=== PATIENT | male | born 1945 | race Caucasian/White ===

== ENCOUNTER 2019-01-23 08:36 | Emergency (ER) | payer MEDICARE ==
[2019-01-23 09:26] LABS: CHLORIDE,CL 104 mmol/L (98-107); SODIUM,NA 139 mmol/L (136-145)
--- NOTE | 2019-01-23 09:36 | EDM.PDOC ---
ED HPI GENERAL MEDICAL PROBLEM - General Chief Complaint: Neuro Symptoms/Deficits Stated Complaint: stroke code Time Seen by Provider: 01/23/19 09:01 Source of Information: Reports: EMS History Limitations: Reports: Altered Mental Status - History of Present Illness INITIAL COMMENTS - FREE TEXT/NARRATIVE: Patient brought from [facility] after being noted to be unresponsive this morning. He was in bed. Last known normal was last night around 8pm. Usually ambulates, picks up meds from nurses. Usually is conversive and is oriented to name and place. Able to dress self. Blood sugar was 50 initially. Received glucagon x2. Transported to ER Blood sugar currently over 180. Patient is awake at this time but will not follow directions. Only word he says is "yes". Appears to have equal tone bilaterally, no facial droop. No other obvious focal neuro changes reported to be observed by EMS. Noted to draw both knees up while sitting in bed. Pulls back equally with both upper limbs when arms initially examined. Makes eye contact with examiners. No other recent changes reported by [facility] staff. No reported new meds or falls. No signs of cold/infection. History of dementia. - Related Data Allergies Allergy/AdvReac Type Severity Reaction Status Date / Time No Known Allergies Allergy Verified 01/23/19 09:23 Home Meds: Home Meds Bimatoprost [LUMIGAN 0.01% Ophth Soln] 1 drop EYEBOTH 199909/06/18 [History] Dorzolamide HCl/Timolol Maleat [Dorzolamide-Timolol Eye Drops] 1 drop EYEBOTH BID 09/06/18 [History] Insulin Detemir [Levemir Flextouch] 26 units SUBCUT DAILY 09/06/18 [History] Levothyroxine 175 mcg PO DAILY 09/06/18 [History] Simvastatin 10 mg PO 199909/06/18 [History] Dextrose [Glucose Gel] 1 tube PO ASDIRECTED PRN 10/26/18 [History] Glucagon,Human Recombinant [Glucagon Emergency Kit] 1 mg IJ ASDIRECTED PRN 10/26 [History] Insulin Aspart [NovoLOG] 10 unit INJECT 1200 10/26/18 [History] Sertraline [Zoloft] 50 mg PO DAILY 10/26/18 [History] Past Medical History HEENT History: Reports: Glaucoma, Hard of Hearing, Impaired Vision, Macular Degeneration, Other (See Below) Other HEENT History: Patient wears reading glasses. No hearing aide therapy. Moderate bilateral presbycusis. Cardiovascular History: Reports: Heart Murmur, High Cholesterol, Hypertension, Other (See Below) Other Cardiovascular History: Moderate aortic valve stenosis and mitral valve insufficiency by clinical exam Gastrointestinal History: Reports: Chronic Constipation Musculoskeletal History: Reports: Osteoarthritis Neurological History: Reports: Alzheimers Disease, Other (See Below) Other Neuro History: Dementia Psychiatric History: Reports: Alzheimers Disease, Anxiety, Dementia, Depression Endocrine/Metabolic History: Reports: Hypothyroidism, IDDM, Other (See Below) Other Endocrine/Metabolic History: Recurrent hypoglycemic episodes. Hematologic History: Reports: Anemia - Past Surgical History HEENT Surgical History: Reports: Adenoidectomy, Tonsillectomy Social & Family History - Family History Family Medical History: Noncontributory - Living Situation & Occupation Living situation: Reports: Single (1 son), Extended Care Facility (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 No: Lymphadenopathy (L), Lymphadenopathy (R) Respiratory/Chest: No Respiratory Distress, Lungs Clear, Normal Breath Sounds, No Accessory Muscle Use Cardiovascular: Normal Peripheral Pulses, Regular Rate, Rhythm, No Edema, Systolic Murmur GI/Abdominal: Normal Bowel Sounds, Soft, Non-Tender, No Distention (Male) Exam: Deferred Rectal (Males) Exam: Deferred Neurological: Alert, Other (patient uncooperative with exam. Appeared initially to have equal tone/spontaneous movement bilateral limbs. Also equal strength when trying to pull away from examiners. ) DTR: 2+: Bicep (R), Bicep (L), 3+: Patella (R), Patella (L) Back Exam: No: Muscle Spasm, Paraspinal Tenderness, Vertebral Tenderness Extremities: No Pedal Edema, Normal Capillary Refill Psychiatric: Normal Affect Skin Exam: Warm, Dry, Intact, Normal Color EKG INTERPRETATION EKG Date: 01/23/19 Time: 09:18 Rhythm: NSR Rate (Beats/Min): 76 [place]: Normal P-Wave: Present QRS: Normal ST-T: Normal QT: Normal Course - Orders/Labs/Meds Orders: Active Orders 24 hr Category Date Time Status EKG Documentation Completion [RC] ASDIRECTED Care 01/23/19 09:18 Active Head wo Cont [CT] Stat Exams 01/23/19 08:40 Taken PROLACTIN [REF] Stat Lab 01/23/19 09:05 Received Labs: Laboratory Tests 01/23/19 01/23/19 01/23/19 Range/Units 09:05 09:05 09:05 WBC 14.4 H (4.0-10.2) K/uL RBC 4.42 (4.33-5.41) M/uL Hgb 13.1 (13.1-16.8) g/dL Hct 38.5 L (39.0-49.0) % MCV 87.1 (84.0-98.0) fL MCH 29.6 (28.2-33.3) pg MCHC 34.0 (31.7-36.0) g/dL RDW 13.7 (11.2-14.1) % Plt Count 190 (150-350) K/uL Neut % (Auto) 89.3 H (45.0-80.0) % Lymph % (Auto) 6.9 L (10.0-50.0) % [place] % (Auto) 3.6 (2.0-14.0) % Eos % (Auto) 0.1 (0.0-5.0) % Baso % (Auto) 0.1 (0.0-2.0) % Neut # (Auto) 12.82 H (1.40-7.00) K/uL Lymph # (Auto) 0.99 (0.50-3.50) K/uL [place] # (Auto) 0.51 (0.00-1.00) K/uL Eos # (Auto) 0.02 (0.00-0.50) K/uL Baso # (Auto) 0.02 (0.00-0.20) K/uL PT 10.4 (9.5-12.0) SEC INR 1.0 APTT (21.0-31.3) SEC D-Dimer, Quantitative (0-400) ng/mL Sodium 139 (136-145) mmol/L Potassium 4.3 (3.5-5.1) mmol/L Chloride 104 (98-107) mmol/L Carbon Dioxide 27.2 (21.0-32.0) mmol/L BUN 22 H (7-18) mg/dL Creatinine 0.85 (0.51-1.17) mg/dL Est Cr Clr Drug Dosing TNP Estimated GFR (MDRD) > 60 mL/min Glucose 188 H (74-106) mg/dL Calcium 8.8 (8.5-10.1) mg/dL Magnesium 2.0 (1.8-2.4) mg/dL Total Bilirubin 0.5 (0.2-1.0) mg/dL AST 21 (15-37) U/L ALT 33 (12-78) U/L Alkaline Phosphatase 84 (46-116) IU/L Creatine Kinase 133 (26-308) U/L Creatine Kinase Index 1.4 (0.0-2.5) % CK-MB (CK-2) 1.80 (0.00-3.60) ng/mL Troponin I 0.008 (0.000-0.056) ng/mL NT-Pro-B Natriuret Pep 394 H (0-125) pg/mL Total Protein 7.2 (6.4-8.2) g/dL Albumin 3.6 (3.4-5.0) g/dL Specimen Type Urine Color Urine Appearance Urine pH (5.0-9.0) Ur Specific [place] (1.005-1.030) Urine Protein (NEGATIVE) mg/dL Urine Glucose (UA) (NEGATIVE) mg/dL Urine Ketones (NEGATIVE) mg/dL Urine Occult Blood (NEGATIVE) Urine Nitrite (NEGATIVE) Urine Bilirubin (NEGATIVE) Urine Urobilinogen (0.2-1.0) E.U./dL Ur Leukocyte Esterase (NEGATIVE) Urine RBC /HPF Urine WBC /HPF Ur Epithelial Cells /LPF Urine Bacteria (NONE TO FEW) /HPF 03/05/0801/23/19 01/23/19 Range/Units 09:05 09:05 09:05 WBC (4.0-10.2) K/uL RBC (4.33-5.41) M/uL Hgb (13.1-16.8) g/dL Hct (39.0-49.0) % MCV (84.0-98.0) fL MCH (28.2-33.3) pg MCHC (31.7-36.0) g/dL RDW (11.2-14.1) % Plt Count (150-350) K/uL Neut % (Auto) (45.0-80.0) % Lymph % (Auto) (10.0-50.0) % [place] % (Auto) (2.0-14.0) % Eos % (Auto) (0.0-5.0) % Baso % (Auto) (0.0-2.0) % Neut # (Auto) (1.40-7.00) K/uL Lymph # (Auto) (0.50-3.50) K/uL [place] # (Auto) (0.00-1.00) K/uL Eos # (Auto) (0.00-0.50) K/uL Baso # (Auto) (0.00-0.20) K/uL PT (9.5-12.0) SEC INR APTT 26.6 (21.0-31.3) SEC D-Dimer, Quantitative 455 H (0-400) ng/mL Sodium (136-145) mmol/L Potassium (3.5-5.1) mmol/L Chloride (98-107) mmol/L Carbon Dioxide (21.0-32.0) mmol/L BUN (7-18) mg/dL Creatinine (0.51-1.17) mg/dL Est Cr Clr Drug Dosing Estimated GFR (MDRD) mL/min Glucose (74-106) mg/dL Calcium (8.5-10.1) mg/dL Magnesium (1.8-2.4) mg/dL Total Bilirubin (0.2-1.0) mg/dL AST (15-37) U/L ALT (12-78) U/L Alkaline Phosphatase (46-116) IU/L Creatine Kinase (26-308) U/L Creatine Kinase Index (0.0-2.5) % CK-MB (CK-2) (0.00-3.60) ng/mL Troponin I (0.000-0.056) ng/mL NT-Pro-B Natriuret Pep (0-125) pg/mL Total Protein (6.4-8.2) g/dL Albumin (3.4-5.0) g/dL Specimen Type Urincath Urine Color Yellow Urine Appearance Clear Urine pH 6.5 (5.0-9.0) Ur Specific [place] 1.020 (1.005-1.030) Urine Protein Negative (NEGATIVE) mg/dL Urine Glucose (UA) 500 H (NEGATIVE) mg/dL Urine Ketones Negative (NEGATIVE) mg/dL Urine Occult Blood Moderate H (NEGATIVE) Urine Nitrite Negative (NEGATIVE) Urine Bilirubin Negative (NEGATIVE) Urine Urobilinogen 0.2 (0.2-1.0) E.U./dL Ur Leukocyte Esterase Negative (NEGATIVE) Urine RBC 40-50 H /HPF Urine WBC 0-5 /HPF Ur Epithelial Cells Few /LPF Urine Bacteria Rare (NONE TO FEW) /HPF Meds: Medications Discontinued Medications Generic Name Dose Route Start Last Admin Trade Name Freq PRN Reason Stop Dose Admin Lorazepam 1 mg 01/23/19 10:22 01/23/19 10:27 Ativan IVPUSH 01/23/19 10:23 1 mg ONETIME ONE Administration - Radiology Interpretation CT Results Date: 01/23/19 CT Results Time: 09:21 - Re-Assessments/Exams Free Text/Narrative Re-Assessment/Exam: 01/23/19 10:28 Unable to perform NIH stroke scale as patient non-cooperative. CT scan results unremarkable for acute changes/bleed EKG showed NSR. Labs performed and were overall unremarkable. Blood sugar elevated. WBC slightly elevated. No obvious signs of focal infection/UTI identified. Minimal elevation DDimer Patient's son contacted. He was willing to have patient evaluated by Neurology to see what recommendations would be. [facility] () was contacted and was willing to accept patient if [facility] recommended no immediate additional intervention. [facility] contacted. recommended patient be transferred to [facility] for further evaluation. Given time lapse since last normal, and current symptoms, no thrombolytic medication recommended at this time. Observing patient, it was eventually observed that he appeared to be moving his left limbs a bit more easily than the right. Noxious stimulus applied to right leg and no withdrawal observed, however withdrawal and "ow" noted when similar stimulus applied to left thigh and lower leg. Within 10 minutes however, patient was noted to be lifting right arm and leg in the air like there was no weakness. Sensation appeared equal bilaterally at all times when bottom of feet stroked during stay. Very difficult to say for certain there are neuro deficits on right compared to left. Patient appears to have equal gaze and will follow staff with his eyes when they move around the room, both to right and left of him. Speech did not change. Only verbal response to any questions was "yeah", and eventually he added "oh shit". He remained uncooperative with examinations and refused to follow directions. He attempted to pull out his Vicente as well as his IV. Ativan given. Transfer arranged to [facility]. Departure - Departure Time of Disposition: 10:26 Disposition: DC/Tfer to Acute Hospital 02 Condition: Fair Clinical Impression: Altered mental status, unspecified Qualifiers: Altered mental status type: unspecified Qualified Code(s): R41.82 - Altered mental status, unspecified - Discharge Information *PRESCRIPTION DRUG MONITORING PROGRAM REVIEWED*: Not Applicable *COPY OF PRESCRIPTION DRUG MONITORING REPORT IN PATIENT SHAGGY: Not Applicable Forms: ED Department Discharge Additional Instructions: Patient to be evaluated at [facility] for possible stroke. MRI unavailable here[facility] [place] [facility] after [facility] workup if appropriate. - My Orders Last 24 Hours: My Active Orders 01/23/19 08:40 Head wo Cont [CT] Stat 01/23/19 09:05 PROLACTIN [REF] Stat 01/23/19 09:18 EKG Documentation Completion [RC] ASDIRECTED - Assessment/Plan Last 24 Hours: My Active Orders 01/23/19 08:40 Head wo Cont [CT] Stat 01/23/19 09:05 PROLACTIN [REF] Stat 01/23/19 09:18 EKG Documentation Completion [RC] ASDIRECTED
[2019-01-23] MEDS: LORazepam 2 MG/ML SDV IVPUSH ONE (10:27)
== END 2019-01-23 10:40 ==
LOC: LL.ED 08:36
DX: R41.82 Altered mental status, unspecified (principal); E11.9 Type 2 diabetes mellitus without complications; Z79.4 Long term (current) use of insulin; E03.9 Hypothyroidism, unspecified; Z79.899 Other long term (current) drug therapy
CPT/HCPCS: 36415; 51702; 70450; 80053; 81001; 82550; 82553; 83735; 83880; 84146; 84484; 85025; 85379; 85610; 85730; 93005; 96374; 99291-25; 99292; J2060

== ENCOUNTER 2021-01-28 09:11 | Emergency (ER) | payer OTHER, MEDICARE ==
--- NOTE | 2021-01-28 09:29 | EDM.PDOC ---
ED HPI GENERAL MEDICAL PROBLEM - General Chief Complaint: Lower Extremity Injury/Pain Stated Complaint: left hip pain Time Seen by Provider: 01/28/21 09:13 Source of Information: Reports: Patient, Other ([facility] staff) History Limitations: Reports: Other (Cognitive impairment/memory loss) - History of Present Illness INITIAL COMMENTS - FREE TEXT/NARRATIVE: Patient fell last night. Now complaining of left hip pain to staff. Referred to ER for evaluation. Arrives in ER sitting in wheelchair/initially denied any pain and said he did not need to be in the ER. - Related Data Allergies Allergy/AdvReac Type Severity Reaction Status Date / Time No Known Allergies Allergy Verified 01/28/21 11:03 Home Meds: Home Meds Bimatoprost [LUMIGAN 0.01% Ophth Soln] 1 drop EYEBOTH 199909/06/18 [History] Dorzolamide HCl/Timolol Maleat [Dorzolamide-Timolol Eye Drops] 1 drop EYEBOTH BID 09/06/18 [History] Insulin Detemir [Levemir Flextouch] 28 units SUBCUT DAILY@199909/06/18 [History] Levothyroxine 175 mcg PO DAILY 09/06/18 [History] Simvastatin 10 mg PO 199909/06/18 [History] Glucagon,Human Recombinant [Glucagon Emergency Kit] 1 mg IJ ASDIRECTED PRN 10/26/18 [History] Sertraline [Zoloft] 100 mg PO DAILY 10/26/18 [History] Acetaminophen 2 tab PO Q4HR PRN 01/28/21 [History] Acetaminophen [Tylenol Arthritis Pain] 1 tab PO 08,20 01/28/21 [History] Acetaminophen [Tylenol Arthritis Pain] 650 mg PO DAILY PRN 01/28/21 [History] Clotrimazole [Lotrimin AF 1% Crm] 1 applic TOP BID 01/28/21 [History] Dextrose [Glucose] 4 tab PO DAILY PRN 01/28/21 [History] Donepezil HCl [Aricept] 1 tab PO DAILY 01/28/21 [History] Loperamide HCl [Imodium A-D] 2 - 4 mg PO ASDIRECTED PRN 01/28/21 [History] Melatonin 2 tab PO BEDTIME 01/28/21 [History] Nut.Tx.Gluc.Intoler,Lac-Fr,Soy [Glucerna] 1 dose PO DAILY 01/28/21 [History] Nystatin [Nystatin Ointment] 1 applic TOP TID PRN 01/28/21 [History] Past Medical History HEENT History: Reports: Glaucoma, Hard of Hearing, Impaired Vision, Macular Degeneration, Other (See Below) Other HEENT History: Patient wears reading glasses. No hearing aide therapy. Moderate bilateral presbycusis. Cardiovascular History: Reports: Heart Murmur, High Cholesterol, Hypertension, Other (See Below) Other Cardiovascular History: Moderate aortic valve stenosis and mitral valve insufficiency by clinical exam Gastrointestinal History: Reports: Chronic Constipation Musculoskeletal History: Reports: Osteoarthritis Neurological History: Reports: Alzheimers Disease, Other (See Below) Other Neuro History: Dementia Psychiatric History: Reports: Alzheimers Disease, Anxiety, Dementia, Depression Endocrine/Metabolic History: Reports: Hypothyroidism, IDDM, Other (See Below) Other Endocrine/Metabolic History: Recurrent hypoglycemic episodes. 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 Denies: Dizziness, Headache, Nu mbness, Change in Speech Psychiatric: Reports: Confusion ED EXAM, GENERAL - Physical Exam Exam: See Below Exam Limited By: Other (left hip pain) General Appearance: Alert, Other (initially no distress. Started to complain of left hip pain once he needed to be moved for xray and back again to ER bed) Eye Exam: Bilateral Eye: EOMI, PERRL Ears: Hearing Grossly Normal Nose: No: Nasal Deformity, Nasal Swelling, Nasal Drainage Throat/Mouth: Normal Lips, Normal Voice, No Airway Compromise Head: Atraumatic, Normocephalic Neck: Normal Inspection, Supple, Non-Tender, Full Range of Motion Respiratory/Chest: No Respiratory Distress, Lungs Clear, Normal Breath Sounds, No Accessory Muscle Use, Chest Non-Tender Cardiovascular: Normal Peripheral Pulses, Regular Rate, Rhythm, Systolic Murmur GI/Abdominal: Normal Bowel Sounds, Soft, Non-Tender, No Distention (Male) Exam: Deferred Rectal (Males) Exam: Deferred Back Exam: No: Muscle Spasm Extremities: Normal Capillary Refill, Other (pain left hip area). No: Mottled, Pallor Neurological: Alert, Memory Loss Recent Events Psychiatric: Normal Affect, Normal Mood Skin Exam: Warm, Dry, Intact, Normal Color Course - Vital Signs Last Recorded V/S: Last Vital Signs Temp 36.5 C 01/28/21 12:11 Pulse 70 01/28/21 12:11 Resp 18 01/28/21 12:11 BP 159/97 H 01/28/21 11:40 Pulse Ox 94 L 01/28/21 12:11 - Orders/Labs/Meds Orders: Active Orders 24 hr Category Date Time Status Hip Min 2V or 3V w Pelvis Lt [CR] Stat Exams 01/28/21 09:23 Taken Saline Lock Insert [OM.PC] Routine Oth 01/28/21 10:24 Ordered Labs: Laboratory Tests 01/28/21 01/28/21 Range/Units 11:16 11:16 WBC 9.6 (4.0-10.2) K/uL RBC 4.24 L (4.33-5.41) M/uL Hgb 12.3 L (13.1-16.8) g/dL Hct 37.0 L (39.0-49.0) % MCV 87.3 (84.0-98.0) fL MCH 29.0 (28.2-33.3) pg MCHC 33.2 (31.7-36.0) g/dL RDW 13.4 (11.2-14.1) % Plt Count 201 (150-350) K/uL Neut % (Auto) 76.5 (45.0-80.0) % Lymph % (Auto) 16.5 (10.0-50.0) % [place] % (Auto) 5.7 (2.0-14.0) % Eos % (Auto) 1.0 (0.0-5.0) % Baso % (Auto) 0.3 (0.0-2.0) % Neut # (Auto) 7.34 H (1.40-7.00) K/uL Lymph # (Auto) 1.59 (0.50-3.50) K/uL [place] # (Auto) 0.55 (0.00-1.00) K/uL Eos # (Auto) 0.10 (0.00-0.50) K/uL Baso # (Auto) 0.03 (0.00-0.20) K/uL Sodium 138 (136-145) mmol/L Potassium 4.1 (3.5-5.1) mmol/L Chloride 103 (98-107) mmol/L Carbon Dioxide 26.0 (21.0-32.0) mmol/L BUN 25 H (7-18) mg/dL Creatinine 0.75 (0.51-1.17) mg/dL Est Cr Clr Drug Dosing 83.60 mL/min Estimated GFR (MDRD) > 60 mL/min Glucose 211 H (70-99) mg/dL Calcium 8.8 (8.5-10.1) mg/dL Magnesium 2.1 (1.8-2.4) mg/dL Total Bilirubin 0.4 (0.2-1.0) mg/dL AST 20 (15-37) U/L ALT 36 (12-78) U/L Alkaline Phosphatase 103 (46-116) IU/L Total Protein 7.4 (6.4-8.2) g/dL Albumin 3.5 (3.4-5.0) g/dL - Re-Assessments/Exams Free Text/Narrative Re-Assessment/Exam: 01/28/21 10:43 Xray confirmed left femoral neck fracture. Call placed to [facility] in [place] and patient reviewed with Yenny/metal control coordinator. They declined transfer to their facility and gave OK for us to send to another facility. Patient accepted for transfer to [facility] by . Waiting for bed confirmation. IV acess/pain medications ordered. Departure - Departure Time of Disposition: 12:30 Disposition: DC/Tfer to Acute Hospital 02 Condition: Good Clinical Impression: Fracture of femoral neck, left, closed Qualifiers: Encounter type: initial encounter Qualified Code(s): S72.002A - Fracture of unspecified part of neck of left femur, initial encounter for closed fracture - Discharge Information *PRESCRIPTION DRUG MONITORING PROGRAM REVIEWED*: Not Applicable *COPY OF PRESCRIPTION DRUG MONITORING REPORT IN PATIENT SHAGGY: Not Applicable Referrals: Celeste Lloyd PA [Primary Care Provider] - Forms: ED Department Discharge Sepsis Event Note (ED) - Evaluation Sepsis Screening Result: No Definite Risk - My Orders Last 24 Hours: My Active Orders 01/28/21 09:23 Hip Min 2V or 3V w Pelvis Lt [CR] Stat 01/28/21 10:24 Saline Lock Insert [OM.PC] Routine - Assessment/Plan Last 24 Hours: My Active Orders 01/28/21 09:23 Hip Min 2V or 3V w Pelvis Lt [CR] Stat 01/28/21 10:24 Saline Lock Insert [OM.PC] Routine
[2021-01-28] MEDS ORDERED: Sodium Chloride 0.9% 10 ML Syringe FLUSH PRN (10:24)
[2021-01-28] MEDS ORDERED: Morphine 2 MG/ML SYRINGE IVPUSH ONE (10:39)
[2021-01-28] MEDS ORDERED: Ondansetron 4 MG/2 ML SDV IVPUSH ONE (10:39)
[2021-01-28] MEDS ORDERED: Sodium Chloride 0.9% 500 ML IV SCH (10:45)
[2021-01-28 11:40] LABS: CHLORIDE,CL 103 mmol/L (98-107); SODIUM,NA 138 mmol/L (136-145)
[2021-01-28 12:06] VITALS: BP 159/97
[2021-01-28 12:12] VITALS: PULSE 70
== END 2021-01-28 12:24 ==
LOC: LL.ED 09:11
DX: S72.002A Fracture of unspecified part of neck of left femur, initial encounter for closed fracture (principal); E78.00 Pure hypercholesterolemia, unspecified; I10 Essential (primary) hypertension; G30.9 Alzheimer's disease, unspecified; F02.80 Dementia in other diseases classified elsewhere, unspecified severity, without behavioral disturbance, psychotic disturbance, mood disturbance, and anxiety; E03.9 Hypothyroidism, unspecified; E11.9 Type 2 diabetes mellitus without complications; Z79.899 Other long term (current) drug therapy; Z79.4 Long term (current) use of insulin; W19.XXXA Unspecified fall, initial encounter
CPT/HCPCS: 36415; 73502; 80053; 83735; 85025; 96374; 96375; 99285; J2270; J2405; J7040; 99284

== ENCOUNTER 2021-05-09 06:36 | Emergency (ER) | payer MEDICARE ==
[2021-05-09 07:37] LABS: CHLORIDE,CL 105 mmol/L (98-107); SODIUM,NA 143 mmol/L (136-145)
[2021-05-09] MEDS ORDERED: levETIRAcetam 500 MG Tab PO SCH (09:00)
--- NOTE | 2021-05-09 09:20 | EDM.PDOC ---
ED HPI GENERAL MEDICAL PROBLEM - General Chief Complaint: Neuro Symptoms/Deficits Stated Complaint: SEIZURE ACTIVITY Time Seen by Provider: 05/09/21 06:50 Source of Information: Reports: Patient History Limitations: Reports: No Limitations - History of Present Illness INITIAL COMMENTS - FREE TEXT/NARRATIVE: Pt. presents to ER via ambulance from [facility] with episodes of decreased LOC. Staff states that for the past several weeks, he has been experiencing episodes of silence and staring off. They last less than a minute. There has been no noted tonic/clonic movement or incontinence. Pt. is alert immediately after the episode. Staff and patient deny any recent head trauma or accident. Staff is concerned because the patient has had approx. 5 of these episodes in the past 24 hours. Pt. has a history of dementia. No other neuro history or history of seizure activity. Pt. denies any headache. Denies any vision loss or change. No numbness in extremities or face. Pt. denies any chest pain, shortness of breath, palpitations, lightheadedness, nausea, vomiting, or chills. He states that he feels fine and doesn't feel any differently than normal. Pt. was scheduled for a CT head and EEG in the next several weeks. Onset: Today Location: Reports: Generalized - Related Data Allergies Allergy/AdvReac Type Severity Reaction Status Date / Time No Known Allergies Allergy Verified 05/09/21 06:51 Home Meds: Home Meds Bimatoprost [LUMIGAN 0.01% Ophth Soln] 1 drop EYEBOTH 199909/06/18 [History] Insulin Detemir [Levemir Flextouch] 28 units SUBCUT DAILY@199909/06/18 [History] Levothyroxine 175 mcg PO DAILY 09/06/18 [History] Glucagon,Human Recombinant [Glucagon Emergency Kit] 1 mg IJ ASDIRECTED PRN 10/26/18 [History] Sertraline [Zoloft] 150 mg PO DAILY 10/26/18 [History] Acetaminophen [Tylenol Arthritis Pain] 1 tab PO 01/28/21 [History] Acetaminophen [Tylenol Arthritis Pain] 650 mg PO DAILY PRN 01/28/21 [History] Dextrose [Glucose] 4 tab PO DAILY PRN 01/28/21 [History] Donepezil HCl [Aricept] 1 tab PO DAILY 01/28/21 [History] Melatonin 2 tab PO BEDTIME 01/28/21 [History] Nystatin [Nystatin Ointment] 1 applic TOP TID PRN 01/28/21 [History] Ascorbic Acid [Vitamin C] 500 mg PO BID 05/09/21 [History] Calcium Carbonate [Calcium] 1 tab PO TID 05/09/21 [History] Dorzolamide HCl/Timolol Maleat [Cosopt Eye Drops] 10 ml OP BID 05/09/21 [History] Multivitamin 1 tab PO DAILY 05/09/21 [History] Simvastatin [Zocor] 10 mg PO BEDTIME 05/09/21 [History] Tamsulosin [Tamsulosin 24 Hr] 0.4 mg PO DAILY 05/09/21 [History] Vit D3 & K/Berberine HCl/Hops [Ostera] 1 tab PO BID 05/09/21 [History] Zinc 50 mg PO DAILY 05/09/21 [History] Past Medical History HEENT History: Reports: Glaucoma, Hard of Hearing, Impaired Vision, Macular Degeneration, Other (See Below) Other HEENT History: Patient wears reading glasses. No hearing aide therapy. Moderate bilateral presbycusis. Cardiovascular History: Reports: Heart Murmur, High Cholesterol, Hypertension, Other (See Below) Other Cardiovascular History: Moderate aortic valve stenosis and mitral valve insufficiency by clinical exam Gastrointestinal History: Reports: Chronic Constipation Musculoskeletal History: Reports: Osteoarthritis Neurological History: Reports: Alzheimers Disease, Other (See Below) Other Neuro History: Dementia Psychiatric History: Reports: Alzheimers Disease, Anxiety, Dementia, Depression Endocrine/Metabolic History: Reports: Hypothyroidism, IDDM, Other (See Below) Other Endocrine/Metabolic History: Recurrent hypoglycemic episodes. 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) ED ROS GENERAL - Review of Systems Review Of Systems: See Below Constitutional: Reports: No Symptoms HEENT: Reports: No Symptoms Respiratory: Reports: No Symptoms Cardiovascular: Reports: No Symptoms Endocrine: Reports: No Symptoms GI/Abdominal: Reports: No Symptoms : Reports: No Symptoms Musculoskeletal: Reports: No Symptoms Skin: Reports: No Symptoms Neurological: Reports: Seizure Psychiatric: Reports: No Symptoms Hematologic/Lymphatic: Reports: No Symptoms Immunologic: Reports: No Symptoms ED EXAM, GENERAL - Physical Exam Exam: See Below Exam Limited By: No Limitations General Appearance: Alert, WD/WN, No Apparent Distress Eye Exam: Bilateral Eye: EOMI, Normal Fundi, Normal Inspection, PERRL Throat/Mouth: Normal Inspection, Normal Lips, Normal Teeth, Normal Gums, Normal Oropharynx, Normal Voice, No Airway Compromise Head: Atraumatic, Normocephalic Neck: Normal Inspection, Supple, Non-Tender, Full Range of Motion Respiratory/Chest: No Respiratory Distress, Lungs Clear, Normal Breath Sounds, No Accessory Muscle Use, Chest Non-Tender Cardiovascular: Normal Peripheral Pulses, Regular Rate, Rhythm, No Edema, No JVD, No Murmur Peripheral Pulses: 4+: Radial (R) GI/Abdominal: Soft, Non-Tender, No Distention, No Mass (Male) Exam: Deferred Rectal (Males) Exam: Deferred Neurological: Alert, Oriented, CN II-XII Intact, Normal Gait, Normal Reflexes, No Motor/Sensory Deficits, Other (mildly confused, denies any complaint. Follows all commands. History of dementia. No pronator drift. No facial droop. Smile symmetrical. Speech is normal.) Psychiatric: Normal Affect, Normal Mood #1 Interpretation Rhythm: NSR Walker: Normal P-Wave: Present QRS: Normal ST-T: Normal QT: Normal Course - Vital Signs Last Recorded V/S: Last Vital Signs Temp 36.8 C 05/09/21 06:37 Pulse 58 L 05/09/21 08:59 Resp 16 05/09/21 08:59 BP 122/53 L 05/09/21 08:59 Pulse Ox 95 05/09/21 08:59 - Orders/Labs/Meds Orders: Active Orders 24 hr Category Date Time Status EKG Documentation Completion [RC] ASDIRECTED Care 05/09/21 07:06 Active Head wo Cont [CT] Stat Exams 05/09/21 07:04 Taken levETIRAcetam [Keppra] Med 05/09/21 09:00 Active 500 mg PO BID Medication Orders Levetiracetam (Levetiracetam 500 Mg Tab) 500 mg PO BID KIM Last Admin: 05/09/21 09:09 Dose: 500 mg Documented by: EDENILSON Labs: Laboratory Tests 05/09/21 05/09/21 Range/Units 07:15 07:15 WBC 6.7 (4.0-10.2) K/uL RBC 4.65 (4.33-5.41) M/uL Hgb 13.0 L (13.1-16.8) g/dL Hct 39.4 (39.0-49.0) % MCV 84.7 (84.0-98.0) fL MCH 28.0 L (28.2-33.3) pg MCHC 33.0 (31.7-36.0) g/dL RDW 13.6 (11.2-14.1) % Plt Count 176 (150-350) K/uL Neut % (Auto) 60.3 (45.0-80.0) % Lymph % (Auto) 28.7 (10.0-50.0) % Tyrrell % (Auto) 8.2 (2.0-14.0) % Eos % (Auto) 2.4 (0.0-5.0) % Baso % (Auto) 0.4 (0.0-2.0) % Neut # (Auto) 4.02 (1.40-7.00) K/uL Lymph # (Auto) 1.92 (0.50-3.50) K/uL Tyrrell # (Auto) 0.55 (0.00-1.00) K/uL Eos # (Auto) 0.16 (0.00-0.50) K/uL Baso # (Auto) 0.03 (0.00-0.20) K/uL Sodium 143 (136-145) mmol/L Potassium 4.1 (3.5-5.1) mmol/L Chloride 105 (98-107) mmol/L Carbon Dioxide 27.3 (21.0-32.0) mmol/L BUN 25 H (7-18) mg/dL Creatinine 0.66 (0.51-1.17) mg/dL Est Cr Clr Drug Dosing 93.56 mL/min Estimated GFR (MDRD) > 60 mL/min Glucose 106 H (70-99) mg/dL Calcium 9.3 (8.5-10.1) mg/dL Phosphorus 3.9 (2.6-4.7) mg/dL Magnesium 2.1 (1.8-2.4) mg/dL Total Bilirubin 0.4 (0.2-1.0) mg/dL AST 20 (15-37) U/L ALT 33 (12-78) U/L Alkaline Phosphatase 111 (46-116) IU/L Troponin I 0.000 (0.000-0.056) ng/mL Total Protein 7.6 (6.4-8.2) g/dL Albumin 3.6 (3.4-5.0) g/dL Ethyl Alcohol 0.002 (0.000-0.080) g/dL Meds: Medications Generic Name Dose Route Start Last Admin Trade Name Freq PRN Reason Stop Dose Admin Levetiracetam 500 mg 05/09/21 09:00 05/09/21 09:09 Levetiracetam 500 Mg Tab PO 500 mg BID KIM Administration - Radiology Interpretation Free Text/Narrative:: CT brain without contrast obtained, negative for acute pathology. Diffuse small vessel disease noted. No large vessel occlusion, mass, or bleed noted. Departure - Departure Time of Disposition: 09:26 Disposition: DC/Tfer to [facility] 03 Clinical Impression: Absence seizure - Discharge Information Instructions: Levetiracetam tablets, Seizure, Adult Referrals: PCP,None [Primary Care Provider] - Forms: ED Department Discharge Additional Instructions: Keppra 500mg 1 tab twice daily Follow-up for EEG as planned. Recheck in clinic in 7-10 days. Return to ER if he has seizure activity lasting longer than 15 min. Sepsis Event Note (ED) - Evaluation Sepsis Screening Result: No Definite Risk - Focused Exam Vital Signs: Vital Signs Temp Pulse Resp BP Pulse Ox 05/09/21 08:59 58 L 16 122/53 L 95 05/09/21 08:39 57 L 16 132/55 L 95 05/09/21 08:10 60 16 160/64 H 94 L 05/09/21 06:37 36.8 C 59 L 12 119/52 L 94 L - Problem List Review Problem List Initiated/Reviewed/Updated: Yes - My Orders Last 24 Hours: My Active Orders 05/09/21 07:04 Head wo Cont [CT] Stat 05/09/21 07:06 EKG Documentation Completion [RC] ASDIRECTED 05/09/21 09:00 levETIRAcetam [Keppra] 500 mg PO BID - Assessment/Plan Last 24 Hours: My Active Orders 05/09/21 07:04 Head wo Cont [CT] Stat 05/09/21 07:06 EKG Documentation Completion [RC] ASDIRECTED 05/09/21 09:00 levETIRAcetam [Keppra] 500 mg PO BID Plan: Discussed findings with Dr. Vargas, neurologist at [facility]. Pt. will be started on Keppra 500mg twice daily. He will still need to have his EEG. Advised follow-up with PCP in 10 days. Return to ER if he has seizure activity lasting longer than 15 min.
== END 2021-05-09 09:38 ==
LOC: LL.ED 06:36
DX: G40.A09 Absence epileptic syndrome, not intractable, without status epilepticus (principal); E78.00 Pure hypercholesterolemia, unspecified; I10 Essential (primary) hypertension; E03.9 Hypothyroidism, unspecified; E11.9 Type 2 diabetes mellitus without complications; Z79.4 Long term (current) use of insulin; Z79.899 Other long term (current) drug therapy
CPT/HCPCS: 36415; 70450; 80053; 80307; 83735; 84100; 84484; 85025; 93005; 99285-25; A9270-GY

== ENCOUNTER 2021-06-27 19:58 | Emergency (ER) | payer MEDICARE ==
--- NOTE | 2021-06-27 20:32 | EDM.PDOC ---
<Marko Mathew W - Last Filed: 06/27/21 20:27> ED HPI GENERAL MEDICAL PROBLEM - General Chief Complaint: Upper Extremity Injury/Pain Stated Complaint: fall, shoulder pain Time Seen by Provider: 06/27/21 20:00 Source of Information: Reports: Patient, Longterm Records History Limitations: Reports: No Limitations - History of Present Illness INITIAL COMMENTS - FREE TEXT/NARRATIVE: Pt. presents to ER with complaints of R shoulder pain post fall. It was unwittnessed. Pt. states that he misstepped, falling laterally onto an outstretched R hand. Pt. denies striking his head. He had no LOC and states that he remembers the entire event. He denied any chest pain, shortness of breath, lightheadedness, or palpitations preceding the fall. Pt. reports that the pain is minimal when at rest, but states that it is more uncomfortable when he lifts the arm. He denies any numbness/tingling in the distal portion of the extremity. Pt. denies any neck, back, chest, pelvic, abdominal or lower extremity pain post fall. he was able to stand and ambulate without difficulty. He is not anticoagulated. Onset: Today Location: Reports: Upper Extremity, Right Quality: Reports: Ache Severity: Mild Right Shoulder Pain Score (Numeric/FACES): 7 - Related Data Allergies Allergy/AdvReac Type Severity Reaction Status Date / Time No Known Allergies Allergy Verified 05/09/21 06:51 Home Meds: Home Meds Bimatoprost [LUMIGAN 0.01% Ophth Soln] 1 drop EYEBOTH 199909/06/18 [History] Insulin Detemir [Levemir Flextouch] 28 units SUBCUT DAILY@199909/06/18 [History] Levothyroxine 175 mcg PO DAILY 09/06/18 [History] Glucagon,Human Recombinant [Glucagon Emergency Kit] 1 mg IJ ASDIRECTED PRN 10/26/18 [History] Sertraline [Zoloft] 150 mg PO DAILY 10/26/18 [History] Acetaminophen [Tylenol Arthritis Pain] 1 tab PO ,01/28/21 [History] Acetaminophen [Tylenol Arthritis Pain] 650 mg PO DAILY PRN 01/28/21 [History] Dextrose [Glucose] 4 tab PO DAILY PRN 01/28/21 [History] Donepezil HCl [Aricept] 1 tab PO DAILY 01/28/21 [History] Melatonin 2 tab PO BEDTIME 01/28/21 [History] Nystatin [Nystatin Ointment] 1 applic TOP TID PRN 01/28/21 [History] Ascorbic Acid [Vitamin C] 500 mg PO BID 05/09/21 [History] Calcium Carbonate [Calcium] 1 tab PO TID 05/09/21 [History] Dorzolamide HCl/Timolol Maleat [Cosopt Eye Drops] 10 ml OP BID 05/09/21 [History] Multivitamin 1 tab PO DAILY 05/09/21 [History] Simvastatin [Zocor] 10 mg PO BEDTIME 05/09/21 [History] Tamsulosin [Tamsulosin 24 Hr] 0.4 mg PO DAILY 05/09/21 [History] Vit D3 & K/Berberine HCl/Hops [Ostera] 1 tab PO BID 05/09/21 [History] Zinc 50 mg PO DAILY 05/09/21 [History] Past Medical History HEENT History: Reports: Glaucoma, Hard of Hearing, Impaired Vision, Macular Deg eneration, Other (See Below) Other HEENT History: Patient wears reading glasses. No hearing aide therapy. Moderate bilateral presbycusis. Cardiovascular History: Reports: Heart Murmur, High Cholesterol, Hypertension, Other (See Below) Other Cardiovascular History: Moderate aortic valve stenosis and mitral valve insufficiency by clinical exam Gastrointestinal History: Reports: Chronic Constipation Musculoskeletal History: Reports: Osteoarthritis Neurological History: Reports: Alzheimers Disease, Other (See Below) Other Neuro History: Dementia Psychiatric History: Reports: Alzheimers Disease, Anxiety, Dementia, Depression Endocrine/Metabolic History: Reports: Hypothyroidism, IDDM, Other (See Below) Other Endocrine/Metabolic History: Recurrent hypoglycemic episodes. Hematologic History: Reports: Anemia - Past Surgical History HEENT Surgical History: Reports: Adenoidectomy, Tonsillectomy Social & Family History - Family History Family Medical History: No Pertinent Family History - Caffeine Use Caffeine Use: Reports: Coffee - Living Situation & Occupation Living situation: Reports: Single (1 son), Extended Care Facility (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) Review of Systems - Review of Systems Review Of Systems: See Below Constitutional: Reports: No Symptoms Ears: Reports: No Symptoms Nose: Reports: No Symptoms Mouth/Throat: Reports: No Symptoms Respiratory: Reports: No Symptoms Cardiovascular: Reports: No Symptoms GI/Abdominal: Reports: No Symptoms Genitourinary: Reports: No Symptoms Musculoskeletal: Reports: Shoulder Pain Skin: Reports: No Symptoms Neurological: Reports: No Symptoms Psychiatric: Reports: No Symptoms ED EXAM, GENERAL - Physical Exam Exam: See Below Exam Limited By: No Limitations General Appearance: Alert, WD/WN, No Apparent Distress Eye Exam: Bilateral Eye: EOMI, PERRL Throat/Mouth: Normal Lips, Normal Voice, No Airway Compromise Head: Atraumatic, Normocephalic, Other (No scalp tenderness/swelling. No redness, abrasions, or edema to head/face.) Neck: Normal Inspection, Supple, Non-Tender, Full Range of Motion, Other (No midline cervical pain. No increased pain with movement. Cleared via NEXUS criteria.) Respiratory/Chest: No Accessory Muscle Use, Chest Non-Tender Back Exam: Normal Inspection, Full Range of Motion Extremities: Other (Patient complains of increased discomfort with acti ve/passive movement of R shoulder. No obvious deformity noted. No crepitus. CMS intact.) Neurological: Alert, Oriented, CN II-XII Intact, Normal Cognition, Normal Reflexes, No Motor/Sensory Deficits Psychiatric: Normal Affect, Normal Mood Skin Exam: Warm, Dry, Intact Lymphatic: No Adenopathy Departure - Departure Time of Disposition: 20:36 Disposition: DC/Tfer to [facility] 03 Clinical Impression: Sprain of shoulder, right, Closed right clavicular fracture - Discharge Information Instructions: Shoulder Sprain Referrals: PCP,None [Primary Care Provider] - Forms: ED Department Discharge Additional Instructions: Ice shoulder for 15 min every 1-2 hours for pain. Tylenol 650mg every 4-6 hours as needed for pain. Follow-up in clinic in 7-10 days if still having discomfort. Sepsis Event Note (ED) - Evaluation Sepsis Screening Result: No Definite Risk - Problem List Review Problem List Initiated/Reviewed/Updated: Yes - Assessment/Plan Plan: No obvious bony injury noted on x-ray. Ice shoulder for 15 min every 1-2 hours for pain. Tylenol 650mg every 4-6 hours as needed for pain. Follow-up in clinic in 7-10 days if still having discomfort. <Latoya Hagan H - Last Filed: 06/28/21 12:22> Course - Vital Signs Last Recorded V/S: Last Vital Signs Temp 36.7 C 06/27/21 19:58 Pulse 65 06/27/21 19:58 Resp 20 06/27/21 19:58 BP 121/51 L 06/27/21 19:58 Pulse Ox 95 06/27/21 19:58 - Orders/Labs/Meds Orders: Active Orders 24 hr Category Date Time Status Shoulder Comp Rt [CR] Stat Exams 06/27/21 20:06 Taken - Re-Assessments/Exams Free Text/Narrative Re-Assessment/Exam: 06/28/21 12:19 Nondisplaced dial clavicle fracture noted on Radiology report received today. Call made to [facility] and nursing staff advised of this finding. Patient's regular provider will be rounding on patient today and they will notify the provider (Nargis) of diagnosis.
== END 2021-06-27 20:45 ==
LOC: LL.ED 19:58
DX: S42.001A Fracture of unspecified part of right clavicle, initial encounter for closed fracture (principal); S43.401A Unspecified sprain of right shoulder joint, initial encounter; E78.00 Pure hypercholesterolemia, unspecified; I10 Essential (primary) hypertension; E03.9 Hypothyroidism, unspecified; E11.9 Type 2 diabetes mellitus without complications; Z79.4 Long term (current) use of insulin; Z79.899 Other long term (current) drug therapy; W18.39XA Other fall on same level, initial encounter
CPT/HCPCS: 73030-RT; 99283; 99284

== ENCOUNTER 2021-07-25 12:36 | Emergency (ER) | payer MEDICARE ==
--- NOTE | 2021-07-25 12:45 | EDM.PDOC ---
ED HPI GENERAL MEDICAL PROBLEM - General Chief Complaint: Lower Extremity Injury/Pain Stated Complaint: fall left hip pain Time Seen by Provider: 07/25/21 12:40 Source of Information: Reports: Patient, Fdc Records History Limitations: Reports: Other (dementia) - History of Present Illness INITIAL COMMENTS - FREE TEXT/NARRATIVE: Patient resides at the 's home and has dementia. Apparently he had a witnessed fall today 11:10. He is not on a blood thinner. He fell onto the left side and complained of left hip pain with weight bearing that was new. He has a history of fall on this side, ORIF of the left hip. He has significant dementia and at arrival does not know why he is here. Is unaccompanied. States has some right shoulder pain with a lidocaine patch on , but thinks his shoulder hurts all the time. Sitting in a wheelchair. I do not have him stand Onset: Today Duration: Hour(s): Location: Reports: Pelvis, Lower Extremity, Left - Related Data Allergies Allergy/AdvReac Type Severity Reaction Status Date / Time No Known Allergies Allergy Verified 07/25/21 13:21 Home Meds: Home Meds Bimatoprost [LUMIGAN 0.01% Ophth Soln] 1 drop EYEBOTH 199909/06/18 [History] Insulin Detemir [Levemir Flextouch] 28 units SUBCUT DAILY@199909/06/18 [History] Levothyroxine 175 mcg PO DAILY 09/06/18 [History] Glucagon,Human Recombinant [Glucagon Emergency Kit] 1 mg IJ ASDIRECTED PRN 10/26/18 [History] Sertraline [Zoloft] 150 mg PO DAILY 10/26/18 [History] Acetaminophen [Tylenol Arthritis Pain] 1 tab PO 01/28/21 [History] Acetaminophen [Tylenol Arthritis Pain] 650 mg PO DAILY PRN 01/28/21 [History] Dextrose [Glucose] 4 tab PO DAILY PRN 01/28/21 [History] Donepezil HCl [Aricept] 1 tab PO DAILY 01/28/21 [History] Melatonin 2 tab PO BEDTIME 01/28/21 [History] Nystatin [Nystatin Ointment] 1 applic TOP TID PRN 01/28/21 [History] Ascorbic Acid [Vitamin C] 500 mg PO BID 05/09/21 [History] Calcium Carbonate [Calcium] 1 tab PO TID 05/09/21 [History] Dorzolamide HCl/Timolol Maleat [Cosopt Eye Drops] 10 ml OP BID 05/09/21 [History] Multivitamin 1 tab PO DAILY 05/09/21 [History] Simvastatin [Zocor] 10 mg PO BEDTIME 05/09/21 [History] Tamsulosin [Tamsulosin 24 Hr] 0.4 mg PO DAILY 05/09/21 [History] Vit D3 & K/Berberine HCl/Hops [Ostera] 1 tab PO BID 05/09/21 [History] Zinc 50 mg PO DAILY 05/09/21 [History] Past Medical History HEENT History: Reports: Glaucoma, Hard of Hearing, Impaired Vision, Macular Degeneration, Other (See Below) Other HEENT History: Patient wears reading glasses. No hearing aide therapy. Moderate bilateral presbycusis. Cardiovascular History: Reports: Heart Murmur, High Cholesterol, Hypertension, Other (See Below) Other Cardiovascular History: Moderate aortic valve stenosis and mitral valve insufficiency by clinical exam Gastrointestinal History: Reports: Chronic Constipation Musculoskeletal History: Reports: Osteoarthritis Neurological History: Reports: Alzheimers Disease, Other (See Below) Other Neuro History: Dementia Psychiatric History: Reports: Alzheimers Disease, Anxiety, Dementia, Depression Endocrine/Metabolic History: Reports: Hypothyroidism, IDDM, Other (See Below) Other Endocrine/Metabolic History: Recurrent hypoglycemic episodes. Hematologic History: Reports: Anemia - Past Surgical History HEENT Surgical History: Reports: Adenoidectomy, Tonsillectomy Social & Family History - Family History Family Medical History: No Pertinent Family History - Caffeine Use Caffeine Use: Reports: Coffee - Living Situation & Occupation Living situation: Reports: Single (1 son), Extended Care Facility ([facility]) Occupation: Retired (Retired at age 56 from the [employer] in previously worked in cable line work) Review of Systems - Review of Systems Review Of Systems: Unable To Obtain (genaro) Reason Not Obtained: dementia Constitutional: Reports: No Symptoms Eyes: Reports: No Symptoms Ears: Reports: No Symptoms Nose: Reports: No Symptoms Mouth/Throat: Reports: No Symptoms Respiratory: Reports: No Symptoms Cardiovascular: Reports: No Symptoms GI/Abdominal: Reports: No Symptoms Genitourinary: Reports: No Symptoms Musculoskeletal: Reports: Shoulder Pain (right) Neurological: Reports: Confusion ED EXAM, GENERAL - Physical Exam Exam: See Below Exam Limited By: Other (dementia, cooperative,) General Appearance: No Apparent Distress Eye Exam: Bilateral Eye: EOMI, Normal Inspection, PERRL Ears: Normal External Exam, Normal Canal, Hearing Grossly Normal, Normal TMs Nose: Normal Inspection, Normal Mucosa Throat/Mouth: Normal Inspection, Normal Lips, Normal Teeth, Normal Oropharynx, Normal Voice Head: Normocephalic Neck: Normal Inspection, Supple, Non-Tender Respiratory/Chest: No Respiratory Distress, Lungs Clear, Normal Breath Sounds, No Accessory Muscle Use, Chest Non-Tender Cardiovascular: Normal Peripheral Pulses, Regular Rate, Rhythm, No Edema GI/Abdominal: Normal Bowel Sounds, Soft, Non-Tender Back Exam: Normal Inspection. No: CVA Tenderness (L), CVA Tenderness (R) Extremities: Other (pain with motion of the rigth shoulder, lidocaine patch in place over the clavicle. limited rom right shoulder. left shoulder without pain and normal motion. no pain to internal or external rotation of the hips while sitting. no pain to palpation of the knees, legs, lower legs. ) Neurological: Confused, Other (however is cooperative, appropriate ) Course - Vital Signs Last Recorded V/S: Last Vital Signs Temp 36.3 C 07/25/21 13:18 Pulse 64 07/25/21 13:18 Resp 16 07/25/21 13:18 BP 129/55 L 07/25/21 13:18 Pulse Ox 98 07/25/21 13:18 - Orders/Labs/Meds Orders: Active Orders 24 hr Category Date Time Status Hip Min 2V or 3V w Pelvis Lt [CR] Stat Exams 07/25/21 12:43 Taken Shoulder Comp Rt [CR] Stat Exams 07/25/21 12:43 Taken - Radiology Interpretation Free Text/Narrative:: right clavicle with distal non union fracture. preliminary read by myself, by radiology, mildly displaced distal clavicle fracture slightly more displaced than on 06/27/2021. no other change pelvis is without fracture, left hip with MICAELA. preliminary read by radiology, prior MICAELA, no hardware loosening, or fracture. chronic healed fracture of the left inferior pubic ramus. no new abnormalities - Re-Assessments/Exams Free Text/Narrative Re-Assessment/Exam: 07/25/21 13:13 will check xray of the right shoulder due to pain, pelvis and left hip. 07/25/21 14:21 Awaiting x-ray read. Attempted to walk the patient, significant pain with weight bearing on the left , almost jose alberto. He is in [facility]. will need a chair alarm, walker at all times. Is a fall risk due to his dementia, may forget his hip hurts and then gets up. Call to senior care to discuss this. concern for pain medications as patient does not recall he has pain. 07/25/21 14:47 no new fracture. discussed with [facility]. will watch him close, physical therapy, tylenol and motrin Departure - Departure Time of Disposition: 14:43 Disposition: DC/Tfer to Care Home [facility] 64 Clinical Impression: Left hip pain, Clavicle fracture - Discharge Information *PRESCRIPTION DRUG MONITORING PROGRAM REVIEWED*: Not Applicable *COPY OF PRESCRIPTION DRUG MONITORING REPORT IN PATIENT SHAGGY: Not Applicable Referrals: Celeste Lloyd PA [Primary Care Provider] - Forms: ED Department Discharge Additional Instructions: Patient is a fall risk. He has pain with weight bearing on the left leg, but no fracture is seen at the hip or pelvis. He will need a chair alarm, walker with toe touch weight bearing as tolerated. He will likely forget this hurts and get up, meaning he will need to be watched closely. Clavicle fracture is not healing quickly and will continue to cause him pain. Use tylenol and motrin and physical therapy. Follow up with PCP Sepsis Event Note (ED) - Focused Exam Vital Signs: Vital Signs Temp Pulse Resp BP Pulse Ox 07/25/21 13:18 36.3 C 64 16 129/55 L 98 - My Orders Last 24 Hours: My Active Orders 07/25/21 12:43 Hip Min 2V or 3V w Pelvis Lt [CR] Stat Shoulder Comp Rt [CR] Stat - Assessment/Plan Last 24 Hours: My Active Orders 07/25/21 12:43 Hip Min 2V or 3V w Pelvis Lt [CR] Stat Shoulder Comp Rt [CR] Stat
== END 2021-07-25 16:00 ==
LOC: LL.ED 12:36
DX: S42.031K Displaced fracture of lateral end of right clavicle, subsequent encounter for fracture with nonunion (principal); M25.552 Pain in left hip; E78.00 Pure hypercholesterolemia, unspecified; I10 Essential (primary) hypertension; E03.9 Hypothyroidism, unspecified; E11.9 Type 2 diabetes mellitus without complications; Z79.4 Long term (current) use of insulin; Z79.899 Other long term (current) drug therapy; W18.39XA Other fall on same level, initial encounter; Y92.129 Unspecified place in nursing home as the place of occurrence of the external cause
CPT/HCPCS: 73030-RT; 99283-25; 99284

== ENCOUNTER 2022-05-23 17:16 | Emergency (ER) | payer MEDICARE ==
[2022-05-23 18:07] LABS: ANION GAP 6.3 meq/L (7-15)
[2022-05-23] MEDS ORDERED: Morphine 10 MG/ML Syringe IM ONE (18:32)
== END 2022-05-23 18:35 ==
LOC: LL.ED 17:16
DX: S72.002A Fracture of unspecified part of neck of left femur, initial encounter for closed fracture (principal); E78.00 Pure hypercholesterolemia, unspecified; I10 Essential (primary) hypertension; E03.9 Hypothyroidism, unspecified; E11.9 Type 2 diabetes mellitus without complications; Z79.899 Other long term (current) drug therapy; Z79.4 Long term (current) use of insulin; W18.30XA Fall on same level, unspecified, initial encounter
CPT/HCPCS: 36415; 71045; 80053; 85025; 93005; 93010; 96372; 99284; 99285-25; J2270